=== PATIENT | female | born 2000 | race African-American/Black ===

== ENCOUNTER 2024-10-24 09:18 | Emergency (ER) | payer MEDICAID ==
[~2024-10-24] VITALS: Ht 157.5 cm; Wt 41.0 kg
[2024-10-24 09:21] VITALS: O2SAT 100
[2024-10-24 09:31] VITALS: BP 107/60; PULSE 60; RESP 14; TEMP 36.7; O2SAT 99
[2024-10-24 11:50] LABS: CLARITY URINE CLEAR (CLEAR); COLOR URINE DARK YELLOW (YELLOW); GLUCOSE URINE NEGATIVE (NEGATIVE); KETONES URINE 1+ (NEGATIVE); LEUKOCYTE ESTERASE URINE 1+ (NEGATIVE); NITRITE URINE NEGATIVE (NEGATIVE); OCCULT BLOOD URINE NEGATIVE (NEGATIVE); PH URINE 5.5 (4.5-8.0); PROTEIN URINE TRACE (NEGATIVE); SPECIFIC GRAVITY URINE 1.024 (1.005-1.030); UROBILINOGEN URINE 1.0 E.U./dL (0.2-1.0)
[2024-10-24 11:59] LABS: SQUAMOUS EPITHELIAL CELL URINE 3+ /lpf (RARE/1+); YEAST URINE NONE SEEN
[2024-10-24 12:02] LABS: BACTERIA URINE 4+
[2024-10-24 12:05] LABS: RBC URINE 0-2 /hpf (0-2)
[2024-10-26 19:06] LABS: CHLAMYDIA TRACHOMATIS NAA Negative (Negative); NEISSERIA GONORRHOEAE NAA Negative (Negative)
== END 2024-10-24 14:03 | disposition left against medical advice (07) ==
LOC: ER 09:18
DX: N39.9 Disorder of urinary system, unspecified (principal); Z53.21 Procedure and treatment not carried out due to patient leaving prior to being seen by health care provider; Z79.899 Other long term (current) drug therapy
CPT/HCPCS: 81003; 81025; 87077; 87186; 87491; 87591

== ENCOUNTER 2025-01-08 15:43 | Emergency (ER) | payer SELFPAY ==
[~2025-01-08] VITALS: Ht 165.1 cm; Wt 55.0 kg
[2025-01-08 15:48] VITALS: O2SAT 100
[2025-01-08] MEDS: LIDOCAINE HCL 1% 20ML VIAL INFIL ONE ×2 (16:35→19:49)
[2025-01-08] MEDS: TETANUS, DIPHTHERIA, PERTUSSIS VAC/PF 0.5ML (>10YR OLD) IM ONE (16:40)
[2025-01-08] MEDS ORDERED: BO1 TP (18:09)
[2025-01-08] MEDS ORDERED: ACET-2708 MT (18:09)
[2025-01-08] MEDS: HYDROCODONE/ACETAMINOPHEN 5/325MG TABLET PO ONE (19:40)
[2025-01-08] MEDS: BACITRACIN ZINC OINT UDPKT TOP ONE (19:40)
[2025-01-08 20:18] VITALS: BP 128/88; PULSE 82; RESP 18; TEMP 36.6; O2SAT 100
== END 2025-01-08 20:20 | disposition home or self-care (01) ==
LOC: ER 15:43
DX: S01.81XA Laceration without foreign body of other part of head, initial encounter (principal); S51.011A Laceration without foreign body of right elbow, initial encounter; Z88.0 Allergy status to penicillin; W22.8XXA Striking against or struck by other objects, initial encounter; Y93.89 Activity, other specified; Y92.89 Other specified places as the place of occurrence of the external cause; Y99.8 Other external cause status
CPT/HCPCS: 73030; 73080; 70450; 90715; 12002; 12013; 90471; 99285; J2003; Z7610 ×2

== ENCOUNTER 2025-01-20 10:08 | Emergency (ER) | payer SELFPAY ==
[~2025-01-20] VITALS: Ht 157.5 cm; Wt 42.0 kg
[~2025-01-20 10:08] MED LIST: ACET-2708 MT; BO1 TP
[2025-01-20 10:10] VITALS: O2SAT 100
[2025-01-20 10:12] VITALS: BP 101/69; PULSE 66; RESP 16; TEMP 36.7; O2SAT 99
== END 2025-01-20 11:58 | disposition home or self-care (01) ==
LOC: ER 10:08
DX: S51.011D Laceration without foreign body of right elbow, subsequent encounter (principal); Z88.0 Allergy status to penicillin; X58.XXXD Exposure to other specified factors, subsequent encounter
CPT/HCPCS: 99282